=== PATIENT | male | born 1930 | race Hispanic/Latino ===

== ENCOUNTER → 2019-08-11 | Outpatient (CLI) | payer MEDICARE ==
[~2019-08-11] MED LIST: ATOR10TA69 PO; FINA5TAB2 PO; IRON-23 PO; LOSA50TA64 PO; METO25TA6 PO; NICO-705 TD; TAMS0.4C32 PO
== END ==
LOC: RAH 08:35
PROVIDERS: ATTEND Internal Medicine Cardiovascular Disease
DX: I25.5 Ischemic cardiomyopathy (principal); I10 Essential (primary) hypertension; Z95.0 Presence of cardiac pacemaker
CPT/HCPCS: 93306